=== PATIENT | male | born 1990 | race Two or more races ===

== ENCOUNTER 2024-06-01 15:20 | Emergency (ER) | payer OTHER, SELFPAY ==
[2024-06-01 15:26] VITALS: BP 150/92; PULSE 75; TEMP 36.6; O2SAT 100; BMI 32.5
[2024-06-01] MEDS: BACITRACIN 0.9 GM PACKET 1 PACKET TOPICAL (15:53)
--- NOTE | 2024-06-01 15:58 | ED_ITS ---
HPI - Skin/Abscess/Foreign Bdy General Chief complaint: Skin/Abscess/Foreign Body Stated complaint: Laceration Time Seen by Provider: 06/01/24 15:33 Source: patient Mode of arrival: walk-in History of Present Illness HPI narrative: 33-year-old male presents to the emergency room with a chief complaint of a rash beneath his ankle monitor. Patient is requesting the ankle monitor be removed. He states this molar sent him here for evaluation and wanted him have a note that stated it could be removed. Patient has what appears to be a contact dermatitis or a chemical burn to the ankle. He states he has had the monitor on for a month. Small amount of redness erythema and blistering is noted. Peers to be new. Does not appear cellulitic Related Data Previous Rx's ?Medication ?Instructions ?Recorded mupirocin 2 % topical ointment 1 applic topical BID #15 grams 06/01/24 Allergies Allergy/AdvReac Type Severity Reaction Status Date / Time naltrexone AdvReac Severe Swelling Verified 06/01/24 15:31 of the Eye Review of Systems ROS Narrative All Systems are negative except as noted/marked.All systems reviewed and otherwise negative PFSH PFSH Social History Little interest or pleasure in doing things: not at all Feeling down, depressed, or hopeless: not at all Exam Narrative Exam Narrative: Nurses note and vital signs reviewed and patient is not hypoxic. General: The patient appears well and in no apparent distress. Patient is resting comfortably on cart. Skin: Warm, dry, no pallor noted. Dermatitis chemical abrasion or breakdown versus irritation from ankle monitor, no cellulitis streaking, no purulent drainage, Head: Normocephalic, atraumatic Eye: Normal conjunctiva, no drainage, EOMI. PERRL Ears, Nose, Mouth, and Throat: oral mucosa is moist. Nares patent. Mouth without vesicles. Ear canals patent. Tm's without Erythema Musculoskeletal: ankle monitor to the left ankle the patient , has no evidence of calf tenderness, no pitting edema, symmetrical pulses noted bilaterally Neurological: A&O x4, normal speech Psychiatric: Cooperative Constitutional Vital Signs, click to edit/add: Last Vital Signs Temp 98 F 06/01/24 15:26 Pulse 75 06/01/24 15:26 Resp 16 06/01/24 15:26 BP 150/92 H 06/01/24 15:26 Pulse Ox 100 06/01/24 15:26 Course Vital Signs Vital signs: Vital Signs Temperature 98 F 06/01/24 15:26 Pulse Rate 75 06/01/24 15:26 Respiratory Rate 16 06/01/24 15:26 Blood Pressure 150/92 H 06/01/24 15:26 Pulse Oximetry 100 06/01/24 15:26 Temperature 98 F 06/01/24 15:26 Pulse Rate 75 06/01/24 15:26 Respiratory Rate 16 06/01/24 15:26 Blood Pressure 150/92 H 06/01/24 15:26 Pulse Oximetry 100 06/01/24 15:26 MDM - Skin/Abscess/Foreign Bdy MDM Narrative Medical decision making narrative: 3-year-old male presents to the emergency room chief complaint of irritation from an ankle monitor. He is going to be going to his court date in 48 hours. He is here suggesting that they will think a monitor be removed. He said he has irritation on it has been on his like for a month. The area appears to have some kind of minimal erythema or CEMA irritation or chemical breakdown. He is requesting the ankle monitor be removed. I advised him we cannot do that. Patient was offered for the area to be cleansed, tetanus update and the area to be dressed and wrapped. He refuses. Patient be discharged home prescription of Keflex. Differential Diagnosis Differential diagnosis: Likely contact dermatitis and other Discharge Plan Discharge Chief Complaint: Skin/Abscess/Foreign Body Clinical Impression: Dermatitis Patient Disposition: Home, Self-Care Time of Disposition Decision: 15:56 Condition: Good Prescriptions / Home Meds: New mupirocin 2 % ointment 1 applic topical BID Qty: 15 0RF Print Language: Greenlandic Instructions: Dermatitis (ED) Referrals: OLAMIDE MONCADA [Primary Care Provider] - 1 week
== END 2024-06-01 16:09 | disposition home or self-care (01) ==
PROVIDERS: Emergency Provider Emergency Medicine
DX: L30.9 Dermatitis, unspecified (principal)
CPT/HCPCS: 99283